=== PATIENT | female | born 1950 | race Caucasian/White ===

== ENCOUNTER 2017-07-09 12:15 | Inpatient (IN) | payer OTHER ==
[~2017-07-09] VITALS: Ht 160 cm; Wt 87.9 kg
[~2017-07-09 12:15] MED LIST: AMLODIPINE BESY10 MG PO; GLIPIZIDE10 MG PO; Glucotrol PO; INVOKANA100 MG PO; JARDIANCE10 MG PO; Janumet 50/1,000 PO; LANTUS 3 M100 UNITS1 SC; LIPITOR40 MG PO; LITE COAT ASPI325 M1 PO; LOPRESSOR25 MG PO; Levaquin PO; SERTRALINE HCL50 MG PO; SYNTHROID150 MCG PO; TRICOR145 MG PO; VESICARE10 MG PO; VICTOZA 2-0.6 MG/0.1 SC; Zocor PO; Zoloft PO; [UNRECOGNIZED DRUG - OTHER]
[2017-07-09 13:15] LABS: HEMATOCRIT 40.1 % (36.0-46.0); MCH 26.4 PG (29.0-34.0); MCHC 30.9 G/DL (30.0-36.0); MCV 85.3 FL (83-99); MEAN PLAT.VOLUME 12.3 uM^3 (9.5-12.4); PLATELET COUNT 172 K/uL (156-360); RBC DIS.WIDTH-SD 43.5 % (39-53); WHITE BLOOD COUNT 8.1 K/uL (4.1-10.2)
[2017-07-09 13:24] LABS: CHLORIDE 110 mEq/L (99-109); POTASSIUM 3.5 mEq/L (3.7-5.4); SODIUM 145 mEq/L (136-147)
[2017-07-09 13:26] LABS: GLUCOSE 150 mg/dL (70-99)
[2017-07-09 13:27] LABS: ANION GAP 11 MEQ/L (2-14)
[2017-07-09 13:30] LABS: GFR ESTIMATE (CALCULATED) > 59 mL/min/
[2017-07-09 13:31] LABS: UREA NITROGEN (BUN) 11 mg/dL (9-23)
[2017-07-09 15:14] LABS: D-DIMER ELISA < 150.00 ng/mLDDU (<230)
[2017-07-09] MEDS ORDERED: FUROSEMIDE40 MG PO (17:25)
[2017-07-09] MEDS ORDERED: JANUMET XR 50-1 EAC1 PO (17:25)
[2017-07-09] MEDS ORDERED: NOVOLOG PE100 UNITS/ SC ×2 (17:26)
[2017-07-09 20:00] VITALS: BP 172/62
[2017-07-09 20:20] VITALS: BP 172/62
[2017-07-09 21:30] LABS: POINT-OF-CARE METER ID UU14314088
[2017-07-09 23:55] VITALS: BP 153/68
[2017-07-10 04:00] VITALS: BP 151/67
[2017-07-10 05:27] LABS: HEMATOCRIT 39.9 % (36.0-46.0); MCH 25.9 PG (29.0-34.0); MCHC 30.1 G/DL (30.0-36.0); MEAN PLAT.VOLUME 12.3 uM^3 (9.5-12.4); PLATELET COUNT 188 K/uL (156-360); RBC DIS.WIDTH-CV 13.8 % (11.8-14.6); RBC DIS.WIDTH-SD 43.1 % (39-53); RED BLOOD COUNT 4.64 M/uL (3.80-5.20); WHITE BLOOD COUNT 6.4 K/uL (4.1-10.2)
[2017-07-10 05:58] LABS: ALKALINE PHOSPHATASE 61 IU/L (3-129); ANION GAP 10 MEQ/L (2-14); CHLORIDE 108 MEQ/L (99-109); GFR ESTIMATE (CALCULATED) > 59 mL/min/; SAMPLE HEMOLYSIS CHECK 0; SAMPLE ICTERIC CHECK 0; SAMPLE LIPEMIA CHECK 0; SODIUM 142 MEQ/L (136-147); TOTAL BILIRUBIN 0.6 MG/DL (0.0-1.0); UREA NITROGEN (BUN) 16 mg/dL (9-23)
[2017-07-10 06:01] LABS: GLUCOSE 310 mg/dL (70-99); POTASSIUM 4.4 MEQ/L (3.7-5.4)
[2017-07-10 07:55] VITALS: BP 156/70
[2017-07-10 08:33] LABS: POINT-OF-CARE METER ID UU14314088
[2017-07-10 11:16] LABS: POINT-OF-CARE METER ID UU14174216
[2017-07-10 12:40] VITALS: BP 152/69
[2017-07-10 16:00] VITALS: BP 155/72
[2017-07-10 19:24] VITALS: BP 175/73
[2017-07-11 00:06] VITALS: BP 153/70
[2017-07-11 05:24] VITALS: BP 148/67
[2017-07-11 05:48] LABS: GFR ESTIMATE (CALCULATED) > 59 mL/min/; UREA NITROGEN (BUN) 26 mg/dL (9-23)
[2017-07-11 08:17] LABS: POINT-OF-CARE METER ID UU13113698; POINT-OF-CARE USER ID ENVKC36
[2017-07-11 08:40] VITALS: BP 165/70
[2017-07-11] MEDS ORDERED: AMOX TR-K CLV1 EAC4 PO (09:08)
[2017-07-11] MEDS ORDERED: MEDROL DOSEPAK4 MG PO (09:10)
[2017-07-12 11:51] LABS: POINT-OF-CARE METER ID UU14314088
[2017-07-12 11:51] LABS: POINT-OF-CARE METER ID UU14314088
== END 2017-07-11 10:32 | disposition home or self-care (01) | DRG 153 ==
LOC: EME 12:15 → EDOF 17:58 → 4EAST 17:58 → ENRESERV 17:59 → CANRESERV 18:17 → ENRESERV 18:17 → 4EAST 19:51
PROVIDERS: Emergency Medicine; Internal Medicine
DX: J04.0 Acute laryngitis (principal); T78.3XXA Angioneurotic edema, initial encounter; R13.10 Dysphagia, unspecified; E87.6 Hypokalemia; R09.02 Hypoxemia; I10 Essential (primary) hypertension; E11.9 Type 2 diabetes mellitus without complications; E78.5 Hyperlipidemia, unspecified; I25.10 Atherosclerotic heart disease of native coronary artery without angina pectoris; F32.9 Major depressive disorder, single episode, unspecified; E89.0 Postprocedural hypothyroidism; Z85.850 Personal history of malignant neoplasm of thyroid; Z95.1 Presence of aortocoronary bypass graft; Z98.61 Coronary angioplasty status; Z98.84 Bariatric surgery status; Z79.82 Long term (current) use of aspirin; Z23 Encounter for immunization
CPT/HCPCS: 70491; 71250; 80048; 80053; 82565; 82948; 84520; 85027; 85379; 87081; 90686; 99281; 99285; J1100; J1650; J1815; J2930; J7030; S0028

== ENCOUNTER 2018-04-05 16:41 | Inpatient (IN) | payer OTHER ==
[~2018-04-05] VITALS: Ht 160 cm; Wt 88.3 kg
[~2018-04-05 16:41] MED LIST changes: +AMOX TR-K CLV1 EAC4 PO; +FUROSEMIDE40 MG PO; +JANUMET XR 50-1 EAC1 PO; +MEDROL DOSEPAK4 MG PO; +NOVOLOG PE100 UNITS/ SC
[2018-04-05 17:31] LABS: HEMATOCRIT 36.3 % (36.0-46.0); HEMOGLOBIN 11.5 G/DL (11.9-15.5); MCH 26.5 PG (29.0-34.0); MCHC 31.7 G/DL (30.0-36.0); MCV 83.6 FL (83-99); PLATELET COUNT 206 K/uL (156-360); RBC DIS.WIDTH-CV 15.2 % (11.8-14.6); RBC DIS.WIDTH-SD 46.4 % (39-53); RED BLOOD COUNT 4.34 M/uL (3.80-5.20)
[2018-04-05 17:39] LABS: CHLORIDE 109 mEq/L (99-109); POTASSIUM 4.2 mEq/L (3.7-5.4); SODIUM 146 mEq/L (136-147)
[2018-04-05 17:41] LABS: GLUCOSE 88 mg/dL (70-99)
[2018-04-05 17:45] LABS: GFR ESTIMATE (CALCULATED) > 59 mL/min/
[2018-04-05 17:46] LABS: UREA NITROGEN (BUN) 20 mg/dL (9-23)
[2018-04-05 17:51] LABS: TROP-I INTERPRETATION NEGATIVE; TROPONIN-I 0.04 ng/mL (0.0-0.30)
[2018-04-05] MEDS ORDERED: TYLENOL EXTRA500 MG PO (23:02)
[2018-04-05] MEDS ORDERED: POTASSIUM CHLO20 ME1 PO (23:03)
[2018-04-06] VITALS (8 sets, daily range): BP systolic 118–157; BP diastolic 59–87
[2018-04-06 00:38] LABS: TROP-I INTERPRETATION NEGATIVE; TROPONIN-I 0.11 ng/mL (0.0-0.30)
[2018-04-06 12:27] LABS: CHLORIDE 105 MEQ/L (99-109); CREATININE 0.8 MG/DL (0.6-1.3); GFR ESTIMATE (CALCULATED) > 59 mL/min/; POTASSIUM 3.8 MEQ/L (3.7-5.4); SODIUM 142 MEQ/L (136-147); UREA NITROGEN (BUN) 21 mg/dL (9-23)
[2018-04-06 12:31] LABS: GLUCOSE 218 mg/dL (70-99)
[2018-04-07] VITALS (8 sets, daily range): BP systolic 128–170; BP diastolic 60–84
[2018-04-07 06:12] LABS: CHLORIDE 106 MEQ/L (99-109); CREATININE 0.9 MG/DL (0.6-1.3); GFR ESTIMATE (CALCULATED) > 59 mL/min/; POTASSIUM 3.8 MEQ/L (3.7-5.4); SODIUM 143 MEQ/L (136-147); UREA NITROGEN (BUN) 23 mg/dL (9-23)
[2018-04-07 06:27] LABS: GLUCOSE 81 mg/dL (70-99)
[2018-04-08 04:15] VITALS: BP 155/72
[2018-04-08 05:49] LABS: CREATININE 0.8 mg/dL (0.6-1.3); GFR ESTIMATE (CALCULATED) > 59 mL/min/
[2018-04-08 05:50] LABS: UREA NITROGEN (BUN) 18 mg/dL (9-23)
[2018-04-08 06:01] LABS: CHLORIDE 106 MEQ/L (99-109); CREATININE 0.7 MG/DL (0.6-1.3); GFR ESTIMATE (CALCULATED) > 59 mL/min/; GLUCOSE 81 mg/dL (70-99); POTASSIUM 3.7 MEQ/L (3.7-5.4); SODIUM 142 MEQ/L (136-147); UREA NITROGEN (BUN) 19 mg/dL (9-23)
[2018-04-08 07:30] VITALS: BP 136/62
[2018-04-08 11:26] VITALS: BP 141/69
[2018-04-08 15:26] VITALS: BP 163/57
[2018-04-08] MEDS ORDERED: FUROSEMIDE40 MG PO (15:39)
[2018-04-08] MEDS ORDERED: LOPRESSOR100 M1 PO (15:39)
[2018-04-08] MEDS ORDERED: DIGOXIN250 MCG PO (15:39)
[2018-04-08] MEDS ORDERED: ELIQUIS5 MG PO (15:41)
[2018-04-08] MEDS ORDERED: POTASSIUM CHLO20 ME1 PO (15:42)
[2018-04-08] MEDS ORDERED: ENDOCET 5-3251 EACH PO (15:42)
== END 2018-04-08 17:38 | disposition home or self-care (01) | DRG 308 ==
LOC: EME 16:41 → EDOF 23:20 → 4EAST 23:20 → ENRESERV 23:28 → 4EAST 04-06 00:45
PROVIDERS: Family Medicine; Hospitalist
DX: I48.91 Unspecified atrial fibrillation (principal); I11.0 Hypertensive heart disease with heart failure; I50.33 Acute on chronic diastolic (congestive) heart failure; E11.649 Type 2 diabetes mellitus with hypoglycemia without coma; I48.3 Typical atrial flutter; I27.20 Pulmonary hypertension, unspecified; I34.0 Nonrheumatic mitral (valve) insufficiency; M25.511 Pain in right shoulder; E78.5 Hyperlipidemia, unspecified; I25.10 Atherosclerotic heart disease of native coronary artery without angina pectoris; E89.0 Postprocedural hypothyroidism; E66.9 Obesity, unspecified; Z68.34 Body mass index [BMI] 34.0-34.9, adult; Z95.1 Presence of aortocoronary bypass graft; Z79.4 Long term (current) use of insulin; Z79.82 Long term (current) use of aspirin
CPT/HCPCS: 71046; 71275; 73030; 80048; 82565; 82948; 83880; 84443; 84484; 84520; 85027; 93005; 93306; 94799; 99281; 99285; J1160; J1815; J1940; J3010; J7050